=== PATIENT | male | born 1990 | race Caucasian/White ===

== ENCOUNTER 2019-05-13 20:55 | Emergency (ER) | payer BC ==
[~2019-05-13] VITALS: Ht 177.8 cm; Wt 75.0 kg
[2019-05-13 22:58] LABS: BASOPHIL % 0.3 % (0-2); PLATELET COUNT 323 x10^3mcL (130-400); RED CELL DISTRIBUTION WIDTH 12.9 % (11.5-14.5)
[2019-05-13 23:05] LABS: CARBON DIOXIDE 31.2 mmol/L (21-32); CHLORIDE SERUM 103 mmol/L (98-107); CREATININE SERUM 0.8 mg/dL (0.7-1.3); GFR1 > 60 mL/min; GLUCOSE SERUM 106 mg/dL (74-106); POTASSIUM SERUM 3.6 mmol/L (3.5-5.1); SODIUM SERUM 141 mmol/L (136-145)
[2019-05-13 23:10] LABS: ALBUMIN 3.8 g/dL (3.4-5.0); ALKALINE PHOSPHATASE 64 U/L (46-116); ALT/SGPT 9 U/L (16-63); AST/SGOT 14 U/L (15-37)
[2019-05-13 23:19] LABS: T3 TOTAL 1.04 ng/mL
[2019-05-13 23:31] LABS: FREE T4 1.15 ng/dL (0.76-1.46); FREE THYROXINE INDEX 3.4 ug/dL (1.4-4.5); T4(THYROXINE) 9.1 ug/dL (4.7-13.3)
[2019-05-13 23:59] VITALS: BP 132/76
== END 2019-05-13 23:59 | disposition home or self-care (01) ==
LOC: ED 20:55
PROVIDERS: Emergency Medicine
DX: F41.9 Anxiety disorder, unspecified (principal); R00.2 Palpitations
CPT/HCPCS: 36415; 84439; Q0092